=== PATIENT | male | born 1990 | race Caucasian/White ===

== ENCOUNTER → 2017-04-30 | Outpatient (CLI) | payer OTHER ==
[2013-06-29 11:18] VITALS: BP 128/77
[~2017-04-30] MED LIST: NO HOME MEDICATIONS; NORCO 325 MG-51 TA1 PO
[2017-04-30 23:50] LABS: T3 FREE 3.1 pg/mL (1.7-3.7)
== END ==
LOC: LAB 07:44
DX: E03.9 Hypothyroidism, unspecified (principal)